=== PATIENT | female | born 1990 | race Caucasian/White ===

== ENCOUNTER 2016-10-20 17:31 | Emergency (ER) | payer MEDICAID ==
[~2016-10-20] VITALS: Ht 170.2 cm; Wt 54.4 kg
[~2016-10-20 17:31] MED LIST: ALPRAZOLAM1 MG PO; FLEXERIL10 MG PO; NOMEDS XX; PREDNISONE 10MG10 MG PO; SEPTRA DS 800 M1 TAB PO
--- OUTSIDE RECORDS SUMMARY | 2016-10-20 17:37 | External Medical Summary Rpt ---
Demographics Preferred Language Turkish Marital Status Unknown Yazidi Affiliation Unknown Race Unknown Ethnic Group Unknown Author Author , Organization [employer] Address Unknown Phone Unavailable Purpose Continuity of Care Document - through 2016 Immunization No patient found.
--- OUTSIDE RECORDS SUMMARY | 2016-10-20 17:37 | External Medical Summary Rpt ---
Demographics Preferred Language Welsh Marital Status Unknown Yarsani Affiliation Unknown Race Unknown Ethnic Group Unknown Author Author , Organization [employer] Address Unknown Phone Unavailable Purpose Continuity of Care Document - through 2016 Immunization No patient found.
--- OUTSIDE RECORDS SUMMARY | 2016-10-20 17:37 | External Medical Summary Rpt ---
Author Author GIBSON Leann, GIBSON [employer] Organization [employer] Address Unknown Phone Unavailable Payers Section Payer Plan Name Group ID Member ID Coverage Coverage Start End Date Date ANTHEM 79805^ANT [id number] No No HEM PPO 3 [phone] informati informati on in on in source source data data Results 52962 OB Comp Det Observa Value Referen Units Interpr Notes Date tion ce etation Range Obstetr No No No No September 06 ic informa informa informa informa 2011 Ultraso tion in tion in tion in tion in und source source source source ReportD data data data data etailed SurveyR eferral from:CHANTAL SANTOS CNM [facility] [address] [address] 0 [facility] RUSS Higginbotham [address] [place] [address] PhonePh one: FaxFax: ------ ------- ------- ------- ------- ------- ------- ------- ------- ------- -PATIEN T INFORMA TION:Na me: ALTAGRACIA MAGAÑA MR#: [id number]: 21 y/o Exam Date: 09/07/19 12DOB: [birth year] Visit #: 1LMP: 011 Locatio n: [facility] hcare-- Mirian d# Fetuses : 1INDICA TION: Exclude anomali es; tobacco e use-cur rent; hx:elec tive abortio n------ ------- ------- ------- ------- ------- ------- ------- ------- ------- -PHYSIC AL EXAM:Azael ight: 5' 8"Pre-P regnanc y Weight: 110 lbs.Pre -Pregna ncy BMI: 16.7 (Underw eight)C urrent Weight: 130 lbs.MED ICAL HISTORY :Drug Allergi es: NoOther /Commen ts: Medicat ion: Prenata l vitamin s------ ------- ------- ------- ------- ------- ------- ------- ------- ------- -DATING :Assign ed GAGA by LMP GA by US (LMP) EDD21 1/7 wks 20 3/7 wks 21 1/7 wks 01/17/12 BIOMETR Y:BPD: 46.9 mm 20 1/7 wks HC: 184.7 mm 20 6/7 wks(22% ) (28%)Fe mur: 34.6 mm 20 6/7 wks AC: 152.6 mm 20 3/7 wks(39% ) (16%)Ce ph Index:6 8 % (75%-85 %) HC/AC: 1.21 (0.99-1 .23)EFW : 391 gms 0 lbs 14 oz (%)Lat Ventric les: L-5.1 mm Cerebel lum: 21.3 mm (38%)Ci sterna Magna: 5.1 mm Nuchal Fold: 4.1 mmNasal Bone: Seen Heart Rate: 146 bpmFL/A C: 0.22 HL/BPD: 0.7FL/B PD: 0.74 Humerus : 32.9 mm 211/7 (47%)ME ESENTAT ION/COR D/PLACE NTA/FLU ID/CERV IX:Pres entatio n: Cephali cUmbili sy Cord: 3 Vessel Cord. Normal inserti on into the placent a.Place nta: Anterio r. There Is No Evidenc e Of Placent a Previa. Grade 1Amniot ic Fluid: Maximum Vertica l Pocket = 4.7 cm. Subject lissa AFVolum e: Normal. Cervix: NormalF ETAL ANATOMI SY SURVEY: Normal- -----Ca lvarium Lateral Ventric lesCere bellum Choroid PlexusC isterna Magna Midline FalxCav um Septum Pelluci dum NeckPro file OrbitsF bertram NoseLip s Cervica l SpineTh oracic Spine Lumbar SpineSa vlad Four Chamber ViewLVO T RVOTAor tic Arch Cardiac AxisCar diac Positio n Heart MotionD uctal Arch IVCSVC Cardiac RhythmD iaphrag m Chest WallVen tral Wall Left KidneyR ight Kidney Bladder Bowel Genital iaLeft Humerus Right Humerus Left Forearm Right Forearm Left Hand Right HandLef t Femur Right FemurLe ft Lower Leg Right Lower LegLeft Foot Right FootUmb ilical CordSub optimal ------- ---Stom ach Left Fingers Right Fingers Left ToesRig ht ToesAbn ormal-- ------N one identif iedGYN FINDING S:Ovari es: Left: NormalR ight: NormalE FW Summary TableEx am Date Fetus # EFW Percent ile---- ----- ------- ---- ------- ---09/06 1 391AMNI OTIC FLUID VOLUME: NORMAL Subject lissa AF Volume: Normal. Maximum Vertica lPocket : 4.7 cmCERVI X: Visuali zedCerv ical Evaluat ion: No----- ------- ------- ------- ------- ------- ------- ------- ------- ------- --COMME NTS:Vis ualizat ion of anatomy is limited by subopti mal fetalpo sition. The biometr ic measure ments are consist ent with menstru aldates .The amnioti c fluid volume is within normal limits. The fetalst omach is not well visuali zed and did not fill during the exam.Th ere are no other gross abnorma lities identif ied.Rec ommend a repeat ultraso und in 4 weeks to re-asse ss anatomy and growth. Thank you for this referra l. Please contact me if you haveque stions. Electro nically signed by SOLEDAD Joshi M.D. on 09/08/19 12 at8:39 am----- ------- ------- ------- ------- -BRANDIN Joshi M.D.--- ------- ------- ------- ------- ------- ----Son ligia r: Abigail Gold BSN, RNC, RDMS
--- OUTSIDE RECORDS SUMMARY | 2016-10-20 17:37 | External Medical Summary Rpt ---
Author Author , Organization [employer] Address Unknown Phone Unavailable Care Team Providers Care Wilderness Guide Name Role Phone [facility] Unavailable Unavailable SERVICE, [facility] Unavailable Unavailable TRANSPORTATION SER, [facility] Un[facility] Unavailable INC, [facility] Jean-Pierre Tinoco MD, Unavailable Unavailable Jean-Pierre [facility], Unavailable Unavailable PLLC, [facility], [facility] MICHAEL RAMIREZ, MICHAEL Unavailable Unavailable JR RAMIREZ WALKER FOR, WALKER Unavailable Unavailable FOR Purpose Continuity of Care Document - 09-07-2011 through 2016 Problems Code Diagnosis DOS Provider Status R69 ILLNESS 06-04-2016 [facility]ATED UNSPECIFIED TRANSPORTAT ION SER M5431 SCIATICA 04-29-2015 [facility], [facility] Z3401 ENCOUNTER 04-29-2015 [facility] NORMAL INC FIRST PREG 1 TRIMESTER M545 LOW BACK 04-27-2015 [facility] PAIN AMBULANCE SERVICE [id number] OTHER SPEC 04-27-2015 [facility], [facility] COND 1ST TRIMESTER Z3A01 LESS THAN 8 04-27-2015 [facility] GESTATION INC OF Z720 TOBACCO USE 04-27-2015 [facility] 599.0 599.0 URIN 12-31-2012 [facility] NOS 616.10 616.10 12-31-2012 [place] [facility] Allergies, Adverse Reactions, Alerts Type Drug Allergy Adverse Reaction to Substance Substance Reaction Severity No Known Allergies - Unknown Mild Nka Medications Na ND Rx Da Fi Fi Am Da Di Ph RX Ph St me C No te ll ll ou ys ag ar # ys at rm s nt no ma ic us Or Da si cy ia de te s n re d Le 51 09 0 No vo 07 -1 fl 90 4- Lo ox 03 20 ng ac 52 13 er in 0 Ac 50 ti 0M ve G Ta bl et FL 00 09 0 No UC 17 -1 ON 25 4- Lo AZ 41 20 ng OL 14 13 er E 6 10 Ac 0 ti MG ve TA BL ET AZ 68 09 0 No IT 08 -1 HR 40 4- Lo OM 27 20 ng YC 80 13 er IN 1 Ac 25 ti 0 ve MG TA BL ET Vital Signs 12-31-2012 20:37 Name Value Interpretat Reference Comment ion Range Body 98.5 [degF] Temperature BP 77 mm[Hg] Diastolic BP Systolic 126 mm[Hg] Heart 93 /min Rate/Pulse O2% 98 % Respiratory 18 /min Rate 12-31-2012 20:19 Name Value Interpretat Reference Comment ion Range BP 72 mm[Hg] Diastolic BP Systolic 127 mm[Hg] Heart 91 /min Rate/Pulse O2% 94 % Respiratory 18 /min Rate Results Labs Lab Lab Date Result Refere Interp Status Commen Order Detail nces retati t Range on URINALYSIS/COMPLETE (12-31-2012 20:07) URINE 12-31- YELLOW YELLOW complet COLOR 013 ed 20:07 URINE 12-31- SL CLEAR complet APPEARA 013 CLOUDY ed NCE 20:07 URINE 12-31-2 NEGATIV NEG complet GLUCOSE 013 E ed - 20:07 DIPSTIC K URINE 12-31-2 NEGATIV NEG complet BILIRUB 013 E ed IN - 20:07 DIPSTIC K URINE 12-31-2 NEGATIV NEG complet KETONE 013 E mg/dL ed 20:07 URINE 12-31- 1.020 1.005-1 complet SPECIFI 013 UNK .030 ed C 20:07 GRAVITY URINE 12-31- TRACE-L NEG complet BLOOD 013 YSED ed 20:07 URINE 12-31-2 6.0 UNK 5.0-8.5 complet PH 013 ed 20:07 URINE 12-31-2 1+ NEG complet PROTEIN 013 mg/dL ed - 20:07 DIPSTIC K URINE 12-31-2 0.2 NEG complet UROBILI 013 E.U./dL ed NOGEN - 20:07 DIPSTIC K URINE 12-31-2 POSITIV NEG complet NITRATE 013 E ed - 20:07 DIPSTIC K URINE 12-31-2 1+ NEG complet LEUK 013 ed ESTERAS 20:07 E URINE 12-31-2 FEW 0 complet RBC 013 rbc/hpf ed 20:07 URINE 09-14-2 TNTC O complet WBC 013 wbc/hpf ed 20:07 URINE 4+ O complet BACTERI 013 ed A 20:07 Procedures Procedure DOS Code Location Performer Comment NONEMERG A0120 FED[facility]ATED FEDERATED TRNSPRT: 7 [facility] TRANSPORT TRANSPORT MTN ATION SER ATION SER AREA/OTH SYS C-REACTIV 16108 [facility] PROTEIN [facility] INC INC BASIC 70168 [facility] METABOLIC 6 [facility] PANEL INC INC CALCIUM TOTAL GONADOTRO 58383 [facility] PIN 6 [facility] CHORIONIC INC INC QUANTITAT GARRET GONADOTRO 63591 [facility] PIN 6 [facility] CHORIONIC INC INC QUALITATI VE BLOOD 70668 [facility] COUNT 6 [facility] COMPLETE INC INC AUTO&[place] [address] [facility] INFUSION 6 [facility] THERAPY/P INC INC ROPHYLAXI S /DX 1ST TO 1 HR THERAPEUT 66543 [facility] IC 6 [facility] INJECTION INC INC IV PUSH EACH NEW DRUG Encounters Encounter Start End Date Code Location Performer Type Date EMERGENCY 99440 MICAELA SALGADO 6 6 [facility] FOR [facility] T VISIT [facility] - 6 6 [facility] OUTPATIEN INC T EMERGENCY 15957 [facility] 6 6 [facility] DEPARTMEN INC T VISIT LOW/MODER SEVERITY EMERGENCY 08768 [facility] 6 6 [facility] Gonzalez 6 6 [facility] OUTPATIEN INC T EMERGENCY 12126 MICAELA RODRIGUEZ JR 6 6 PHYSICIAN TWAN GARCIA T VISIT HIGH/URGE NT SEVERITY Emergency CANDELARIO Tinoco MD (ER) 3 20:11 3 20:38 [facility]
--- OUTSIDE RECORDS SUMMARY | 2016-10-20 17:37 | External Medical Summary Rpt ---
Author Author , Organization [employer] Address Unknown Phone Unavailable Care Team Providers Care Field Installation Technician Name Role Phone [facility] Unavailable Unavailable SERVICE, [facility] Unavailable Unavailable TRANSPORTATION SER, [facility] Unavailable Unavailable INC, [facility] Jean-Pierre Tinoco MD, Unavailable Unavailable Jean-Pierre [facility], Unavailable Unavailable PLLC, [facility], [facility] MICHAEL RAMIREZ, MICHAEL Unavailable Unavailable JR RAMIREZ WALKER FOR, WALKER Unavailable Unavailable FOR Purpose Continuity of Care Document - 09-07-2011 through 2016 Problems Code Diagnosis DOS Provider Status R69 ILLNESS 06-04-2016 FEDERATED UNSPECIFIED TRANSPORTAT ION SER M5431 SCIATICA 04-29-2015 [facility], [facility] Z3401 ENCOUNTER 04-29-2015 [facility] NORMAL INC FIRST PREG 1 TRIMESTER M545 LOW BACK 04-27-2015 [facility] PAIN AMBULANCE SERVICE [id number] OTHER SPEC 04-27-2015 [facility], [facility] COND 1ST TRIMESTER Z3A01 LESS THAN 8 04-27-2015 [facility] GESTATION INC OF Z720 TOBACCO USE 04-27-2015 [facility] INC 599.0 599.0 URIN 12-31-2012 [facility] NOS 616.10 616.10 12-31-2012 [place] VAGINITIS [facility] Allergies, Adverse Reactions, Alerts Type Drug [...] ATION SER ATION SER AREA/OTH SYS C-REACTIV 76177 [facility] E PROTEIN 6 [facility] INC INC BASIC 78716 [facility] METABOLIC 6 [facility] PANEL INC INC CALCIUM TOTAL GONADOTRO 11370 [facility] PIN 6 [facility] CHORIONIC INC INC QUANTITAT GARRET GONADOTRO 26357 [facility] PIN 6 [facility] CHORIONIC INC INC QUALITATI VE BLOOD 42035 [facility] COUNT 6 [facility] COMPLETE INC INC AUTO&[place] [address] [facility] INFUSION 6 [facility] THERAPY/P INC INC ROPHYLAXI S /DX 1ST TO 1 HR THERAPEUT 05122 [facility] IC 6 [facility] INJECTION INC INC IV PUSH EACH NEW DRUG Encounters Encounter Start End Date Code Location Performer Type Date EMERGENCY 07245 MICAELA SALGADO 6 6 [facility] T VISIT [facility] - 6 6 [facility] OUTPATIEN INC T EMERGENCY 67821 [facility] 6 6 [facility] DEPARTMEN INC T VISIT LOW/MODER SEVERITY EMERGENCY 36460 [facility] 6 6 [facility] Gonzalez 6 6 [facility] OUTPATIEN INC T EMERGENCY 22681 MICAELA RODRIGUEZ JR 6 6 PHYSICIAN TWAN GARCIA T VISIT HIGH/URGE NT SEVERITY Emergency CANDELARIO Tinoco MD (ER) 3 20:11 3 20:38 [facility]
--- OUTSIDE RECORDS SUMMARY | 2016-10-20 17:37 | External Medical Summary Rpt ---
Author Author , Organization [employer] Address Unknown Phone Unavailable Care Team Providers Care Business Integration Manager Name Role Phone [facility] Unavailable Unavailable SERVICE, [facility] Unavailable Unavailable TRANSPORTATION SER, [facility] Unavailable Unavailable INC, [facility], Unavailable Unavailable PLLC, [facility], [facility] MICHAEL JR JAM, MICHAEL Unavailable Unavailable JR JAMES WALKER FOR, WALKER Unavailable Unavailable FOR Purpose Continuity of Care Document - 04-27-2015 through 2016 Problems Code Diagnosis DOS Provider Status R69 ILLNESS 06-04-2016 FEDERATED UNSPECIFIED TRANSPORTAT ION SER M5431 SCIATICA 04-29-2015 [facility] RIGHT [facility], [facility] Z3401 ENCOUNTER 04-29-2015 [facility]PR[facility]N [facility] NORMAL INC FIRST PREG 1 TRIMESTER M545 LOW BACK 04-27-2015 [facility] [id number] OTHER SPEC 04-27-2015 [facility], RELATED [facility] COND 1ST TRIMESTER Z3A01 LESS THAN 8 04-27-2015 [facility] GESTATION INC OF Z720 TOBACCO USE 04-27-2015 [facility] INC Procedures Procedure DOS Code Location Performer Comment NONEMERG A0120 FEDERATED FEDERATED TRNSPRT: 7 MINI-BUS TRANSPORT TRANSPORT MTN ATION SER ATION SER AREA/OTH SYS GONADOTRO 17615 [facility] PIN 6 [facility] INC INC QUANTITAT GARRET BASIC 86417 [facility] METABOLIC 6 [facility] PANEL INC INC CALCIUM TOTAL C-REACTIV 13518 [facility] E PROTEIN 6 [facility] INC INC GONADOTRO 79919 [facility] PIN 6 [facility] CHORIONIC INC INC QUALITATI VE BLOOD 29643 [facility] COUNT 6 [facility] COMPLETE INC INC AUTO&[place] [address] [facility] INFUSION 6 [facility] THERAPY/P INC INC ROPHYLAXI S /DX 1ST TO 1 HR THERAPEUT 41507 [facility] IC 6 [facility] INJECTION INC INC IV PUSH EACH NEW DRUG Encounters Encounter Start End Date Code Location Performer Type Date EMERGENCY 88016 MICAELA SALGADO 6 6 PHYSICIAN TWAN FRAIRE T VISIT [facility] SEVERITY HOSPITAL OL[facility] - 6 6 [facility] OUTPATIEN INC T EMERGENCY 11872 OL[facility] 6 6 [facility] INC T VISIT LOW/MODER SEVERITY HOSPITAL OLIVIER - 6 6 [facility] OUTPATIEN INC T EMERGENCY 16454 [facility] 6 6 [facility] T VISIT MODERATE SEVERITY EMERGENCY 97707 MICAELA RODRIGUEZ JR 6 6 PHYSICIAN TWAN GARCIA T VISIT HIGH/URGE NT SEVERITY
--- OUTSIDE RECORDS SUMMARY | 2016-10-20 17:37 | External Medical Summary Rpt ---
Author Author GIBSON Leann, [email or web address] Organization [employer] Address Unknown Phone Unavailable Payers Section Payer Plan Name Group ID Member ID Coverage Coverage Start End Date Date ANTHEM 55794^ANT [id number] No No HEM PPO 3 [phone] informati informati on in on in source source data data Results 26799 OB Comp Det Observa Value Referen Units Interpr Notes Date tion ce etation Range Obstetr No No No No September 06 ic informa informa informa informa 2011 Ultraso tion in tion in tion in tion in und source source source source ReportD data data data data etailed SurveyR eferral from:CHANTAL SANTOS CNM [facility] H [address] [facility] RUSS Higginbotham [address] [place] [address] PhonePh one: FaxFax: ------ ------- ------- ------- ------- ------- ------- ------- ------- ------- -PATIEN T INFORMA TION:Na me: ALTAGRACIA MAGAÑA MR#: [id number]: 21 y/o Exam Date: 09/07/19 12DOB: [birth year] Visit #: 1LMP: 011 Locatio n: [facility] hcare-- Mirian d# Fetuses : 1INDICA TION: [...] PD: 0.74 Humerus : 32.9 mm 211/7 (47%)NM ESENTAT ION/COR D/PLACE NTA/FLU ID/CERV IX:Pres entatio [...]
--- OUTSIDE RECORDS SUMMARY | 2016-10-20 17:37 | External Medical Summary Rpt ---
Author Author , Organization [employer] Address Unknown Phone Unavailable Care Team Providers Care Incident Handler Name Role Phone [facility] Unavailable Unavailable SERVICE, [facility] Unavailable Unavailable TRANSPORTATION SER, [facility] Unavailable Unavailable INC, OLIVIER [facility], Unavailable Unavailable PLLC, [facility], [facility] MICHAEL JR JAM, MICHAEL Unavailable Unavailable JR JAMES WALKER FOR, WALKER Unavailable Unavailable FOR Purpose Continuity of Care Document - 04-27-2015 through 2016 Problems Code Diagnosis DOS Provider Status R69 ILLNESS 06-04-2016 FEDERATED UNSPECIFIED TRANSPORTAT ION SER M5431 SCIATICA 04-29-2015 [facility] RIGHT SIDE PHYS[facility]ANS, [facility] Z3401 ENCOUNTER 04-29-[address] [facility] NORMAL INC FIRST PREG 1 TRIMESTER M545 LOW BACK 04-27-2015 [facility] [id number] OTHER SPEC 04-27-2015 [facility], RELATED [facility] COND 1ST TRIMESTER Z3A01 LESS THAN 8 04-27-2015 [facility] GESTATION INC OF Z720 TOBACCO USE 04-27-2015 [facility] Procedures Procedure DOS Code Location Performer Comment NONEMERG A0120 FEDERATED FEDERATED TRNSPRT: 7 MINI-BUS TRANSPORT TRANSPORT MTN ATION SER ATION SER AREA/OTH SYS GONADOTRO 74293 [facility] PIN 6 [facility] CHORIONIC INC INC QUANTITAT GARRET BASIC 11444 [facility] METABOLIC 6 [facility] PANEL INC INC CALCIUM TOTAL C-REACTIV 17249 [facility] E PROTEIN 6 [facility] INC INC GONADOTRO 21401 [facility] PIN 6 [facility] CHORIONIC INC INC QUALITATI VE BLOOD 80261 [facility] COUNT 6 [facility] COMPLETE INC INC AUTO&[place] [address] [facility] INFUSION [address] [facility] THERAPY/P INC INC ROPHYLAXI S /DX 1ST TO 1 HR THERAPEUT 09974 [facility] IC [address] [facility] INJECTION INC INC IV PUSH EACH NEW DRUG Encounters Encounter Start End Date Code Location Performer Type Date EMERGENCY 52810 MICAELA SALGADO 6 6 PHYSICIAN TWAN FRAIRE T VISIT [facility] - 6 6 [facility] T EMERGENCY 52056 OL[facility] 6 6 [facility] INC T VISIT LOW/MODER SEVERITY HOSPITAL [facility] - 6 6 [facility] EM[facility]ENCY 56744 [facility] [address] [facility] T VISIT MODERATE SEVERITY EMERGENCY 28229 MICAELA RODRIGUEZ JR 6 6 PHYSICIAN TWAN GARCIA T VISIT HIGH/URGE NT SEVERITY
--- NOTE | 2016-10-20 18:06 | Emergency Room Report ---
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 N Clinical Suspician of Infection? N Mental Status: 1 - Regular (Normal Baseline) Sepsis Risk:Low Sepsis Risk Have you (or family members/close friends) recently traveled outside the [place]? N If Yes, where/when: Have you had exposure to infectious disease within the past month? N TB? Other? Specify: Comment The patient is sent from the urgent treatment center for drainage of an abscess on her LEFT forearm. Patient states this is the third day of the abscess. She denies having previous abscesses. She denies having fever. She says it only hurts when she touches it. Tetanus immunization is up-to-date. ALLERGIES Coded Allergies: No Known Allergies (04/27/15) History Medical History General CAD? No Angina: No CO: No Hypertension? No Hyperlipidemia? No CHF? No DVT? No PE? No COPD? No Asthma? No Anemia? No GERD? No Gastric ulcers? No GI Bleed? No Hernia? No Thyroid Problems? No Hypothyroidism? No CVA? No Seizures? No Diabetes? No Renal Insuffiency? No End Stage Renal Disease? No UTI? No Stones? No BPH? No GB Disease: No Nephritic Syndrome? No Asplenia? No Hepatitis? Yes Sickle Cell Disease? No Arthritis? No Migraines? No Cataracts? No Glaucoma? No MRSA? No HIV? No TB? No Anxiety? No Depression? No Cancer? No More? 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 Cardiovascular normal peripheral pulses Extremities 3 cm diameter fluctuant abscess on the flexor aspect of her LEFT forearm. She has surrounding cellulitis extending approximately 8 cm radius around the abscess. No lymphangitis. No spontaneous drainage. Normal neurovascular status distally. Neurologic alert, no motor/sensory deficits Medical Decision Making LABS/Meds/Orders Pt receiving controlled substance in ED? Yes Mitchel was queried for this patient? Yes Reference #: [id number] Comment 0 rxs. Results/Orders Current Medication Orders Sig/Kristen Start time Last Medication Dose Route Stop Time Status Admin Clindamycin HCl 0 .STK-MED ONE 10/20 183 DC PO Clindamycin HCl 300 MG ONCE ONE 10/20 1830 DC 10/20 PO 10/20 1830 183 Lidocaine/Epinephrine 10 ML ONCE ONE 10/20 1815 DC 10/20 SC 10/21 1815 181 Lidocaine/Epinephrine 0 .STK-MED ONE 10/20 1809 DC .ROUTE Orders Procedure Date/time Status CULTURE, WOUND 10/20 1832 Active Progress - She has what in my opinion are obvious track scott from IV drug abuse on both arms, but denies this when I inquire about injection drug use. She states she was camping and got bug bites. This was a difficult patient encounter. She initially consented to the procedure. When I was getting ready to inject the local anesthetic, she said "I can't do it", and then refused the procedure. She began yelling at me for telling her the shot was going to hurt. I explained that I was just being honest, rather than telling her it would not hurt, which would be a lie. I explained in detail the aspects of the procedure. I explained that she had the right to refuse the procedure, but that I&D was the standard of care for an abscess, and not having this procedure could lead to complications, such as worsening/severe infection, loss of limb, sepsis. She then told me to proceed, but as I started to do so, she again said she could not do it. Several more times, she told me to procede, but then would refuse as I was beginning to procede. Several times she yelled at me and criticized me for telling her the details of the procedure and making things worse. When I was injecting (slowly, to reduce the pain from the injection), she began insulting me and screaming at me for "leaving the needle in too long". She again refused to proceed after the injection of lidocaine was complete, but then once again told me to complete the procedure. I did tell the patient that she was going to have to be cooperative and still, and stop yelling and insulting me, otherwise I would not be able to do the procedure. During the procedure, she began hyperventilating and kicking her legs, stating she was having an anxiety attack and could not breathe. I was able to complete the procedure. Procedures Incision and Drainage Progress Incision/Drainage Performed by: PRATEEK SINGH Consent: Verbal consent obtained. Risks and benefits: risks, benefits and alternatives were discussed Consent given by: patient Patient identity confirmed: verbally with patient Type: abscess Location: LEFT forearm Anesthesia: local infiltration Local anesthetic: lidocaine 1% with epinephrine Patient sedated: no Scalpel size: 11 Incision type: single straight Complexity: simple Drainage: purulent Drainage amount: Large amount Wound treatment: probed for loculationsl. wound left open Packin/4 inch Culture: Yes Patient tolerance: Patient tolerated the procedure well with no immediate complications Departure Departure Disposition DC Home or Self Care(routine) Clinical Impression Primary Impression: Cutaneous abscess Qualifiers: Site of cutaneous abscess: extremity Site of cutaneous abscess of extremity: upper extremity Laterality: left Qualified Code: L02.414 - Cutaneous abscess of left upper limb Condition STABLE Patient Instructions DI for Incision and Drainage of a Skin Abscess Additional Instructions Additional instructions for ABSCESS: Day one and two: Remove the bandage and shower the area, leaving the packing in place. Gently blot dry. Apply a bandage. Day three: Follow-up with primary care physician, clinic, or Urgent Treatment Center for packing removal and culture results. Return to the emergency department if increasing pain, swelling, redness, redstreaks or fever greater than 101 degrees. Prescriptions Current Visit Scripts Clindamycin Hcl (Clindamycin 300MG) 300 MG PO QID #40 CAP HYDROCODONE/ACETAMINOPHEN ([place] 5-325 Tablet) 1 TAB PO Q6HP PRN pain #6 TAB IBUPROFEN MICRONIZED (IBUPROFEN 600MG) 600 MG PO Q6HP PRN pain #20 TAB ED Critical Care Critical Care No at 1927
[2016-10-20] MEDS ORDERED: IBUPROFEN 600M600 MG PO (18:31)
[2016-10-20] MEDS ORDERED: CLINDAMYCIN HC300 MG PO (18:31)
[2016-10-20] MEDS ORDERED: NORCO 325 MG-51 TAB PO (18:31)
[2016-10-20 18:43] VITALS: BP 117/67
== END 2016-10-20 18:44 | disposition home or self-care (01) ==
LOC: UTC 17:31 → ER 17:34 → UTC 17:34 → ER 18:44
PROC: 0H9EXZZ Drainage of Left Lower Arm Skin, External Approach (ICD-10-PCS; principal; 2016-10-20)
DX: L02.414 Cutaneous abscess of left upper limb (principal)

== ENCOUNTER 2017-03-22 05:44 | Emergency (ER) | payer MEDICAID ==
[~2017-03-22] VITALS: Ht 170.2 cm; Wt 45.4 kg
[~2017-03-22 05:44] MED LIST changes: +CLINDAMYCIN HC300 MG PO; +IBUPROFEN 600M600 MG PO; +NORCO 325 MG-51 TAB PO
--- OUTSIDE RECORDS SUMMARY | 2017-03-22 06:06 | External Medical Summary Rpt | CCD ---
Author Author , GIBSON Organization [employer] Address Unknown Phone [email or web address] Care Team Providers Care Airport Security Screener Name Role Phone Jean-Pierre Tinoco MD, Unavailable Unavailable Jean-Pierre Tinoco MD Purpose Continuity of Care Document - 09-07-2011 through 2016 Problems Code Diagnosis DOS Provider Status 599.0 599.0 URIN 12-31-2012 [facility] INFECTION Hospital NOS 616.10 616.10 12-31-2012 [place] VAGINITIS [facility] L02.91 CUTANEOUS ABSCESS, UNSPECIFIED M54.30 SCIATICA, UNSPECIFIED SIDE Z34.90 ENCNTR FOR SUPRVSN OF NORMAL , UNSP, UNSP TRIMESTER Allergies, Adverse Reactions, Alerts Type Drug Allergy [...] t Range on URINALYSIS/COMPLETE (12-31-2012 20:07) URINE 09-14-2 YELLOW YELLOW complet COLOR 013 ed 20:07 URINE -14-2 SL CLEAR complet APPEARA 013 CLOUDY ed NCE 20:07 URINE -14-2 NEGATIV NEG complet GLUCOSE 013 E ed - 20:07 DIPSTIC K URINE 09-14-2 NEGATIV NEG complet BILIRUB 013 E ed IN - 20:07 DIPSTIC K URINE 09-14-2 NEGATIV NEG complet KETONE 013 E mg/dL ed 20:07 URINE 09-14-2 1.020 1.005-1 complet SPECIFI 013 UNK .030 ed C 20:07 GRAVITY URINE -14-2 TRACE-L NEG complet BLOOD 013 YSED ed 20:07 URINE -14-2 6.0 UNK 5.0-8.5 complet PH 013 ed 20:07 URINE 09-14-2 1+ NEG complet PROTEIN 013 mg/dL ed - 20:07 DIPSTIC K URINE 09-14-2 0.2 NEG complet UROBILI 013 E.U./dL ed NOGEN - 20:07 DIPSTIC K URINE 09-14-2 POSITIV NEG complet NITRATE 013 E ed - 20:07 DIPSTIC K URINE 09-14-2 1+ NEG complet LEUK 013 ed ESTERAS 20:07 E URINE -14-2 FEW 0 complet RBC 013 rbc/hpf ed 20:07 URINE -14-2 TNTC O complet WBC 013 wbc/hpf ed 20:07 URINE -14-2 4+ O complet BACTERI 013 ed A 20:07 Encounters Encounter Start End Date Code Location Performer Type Date Emergency CANDELARIO Tinoco MD (ER) 3 20:11 3 20:38 [facility]
--- OUTSIDE RECORDS SUMMARY | 2017-03-22 06:06 | External Medical Summary Rpt | CCD ---
Author Author , GIBSON ARREAGA Address Unknown Phone [email or web address] Care Team Providers Care Glass Installer Name Role Phone [facility] Unavailable Unavailable SERVICE, [facility] Unavailable Unavailable TRANSPORTATION SER, [facility] Unavailable Unavailable INC, [facility]available [facility], [facility] Purpose Continuity of Care Document - 04-27-2015 through 2016 Problems Code Diagnosis DOS Provider Status [id number] CUTANEOUS 10-20-2016 [facility]PP[facility] LIMB R69 ILLNESS 06-04-2016 [facility] UNSPECIFIED TRANSPORTAT ION SER M5431 SCIATICA 04-29-2015 [facility] Z3401 ENCOUNTER 04-29-2015 [facility] NORMAL [facility] FIRST PREG 1 TRIMESTER M545 LOW BACK 04-27-2015 [facility] PAIN AMBULANCE SERVICE [id number] OTHER SPEC 04-27-2015 [facility] COND 1ST TRIMESTER Z3A01 LESS THAN 8 04-27-2015 [facility] GESTATION [facility] OF Z720 TOBACCO USE 04-27-2015 [facility] Encounters Encounter Start End Date Code Location Performer Type Date [facility] - [facility] - [facility] T
--- OUTSIDE RECORDS SUMMARY | 2017-03-22 06:06 | External Medical Summary Rpt | CCD ---
Author Author , GIBSON ARREAGA Address Unknown Phone [email or web address] Care Team Providers Care Director Craft Center Name Role Phone [facility] Unavailable Unavailable SERVICE, [facility] Unavailable Unavailable TRANSPORTATION SER, [facility] Unavailable Unavailable INC, [facility], Unavailable Unavailable [facility], [facility] Purpose Continuity of Care Document - 04-27-2015 through 2016 Problems Code Diagnosis DOS Provider Status X03405 CUTANEOUS 10-20-2016 [facility] LIMB R69 ILLNESS 06-04-2016 [facility] UNSPECIFIED TRANSPORTAT ION SER M5431 SCIATICA 04-29-2015 [facility] Z3401 ENCOUNTER 04-29-2015 [facility] NORMAL [facility] FIRST PREG 1 TRIMESTER M545 LOW BACK 04-27-2015 [facility] PAIN AMBULANCE SERVICE [id number] OTHER SPEC 04-27-2015 [facility] COND 1ST TRIMESTER Z3A01 LESS THAN 8 04-27-2015 [facility] GE[facility]ATION [facility] OF Z720 TOBACCO USE 04-27-2015 [facility] Encounters Encounter Start End Date Code Location Performer Type Date [facility] - [facility] - [facility] - [facility] T
--- OUTSIDE RECORDS SUMMARY | 2017-03-22 06:06 | External Medical Summary Rpt | CCD ---
Author Author , GIBSON Organization GIBSON Address Unknown Phone [email or web address] Care Team Providers Care Naval Inspector Name Role Phone Jean-Pierre Tinoco MD, Unavailable Unavailable Jean-Pierre Tinoco MD Purpose Continuity of Care Document - 09-07-2011 through 2016 Problems Code Diagnosis DOS Provider Status 599.0 599.0 URIN 12-31-2012 [facility] INFECTION Hospital NOS 616.10 616.10 12-31-2012 [place] VAGINITIS [facility] Hospital L02.91 CUTANEOUS ABSCESS, UNSPECIFIED M54.30 [...] Tinoco MD (ER) 3 20:11 3 20:38 [facility]
--- OUTSIDE RECORDS SUMMARY | 2017-03-22 06:07 | External Medical Summary Rpt | CCD ---
Demographics Preferred Language Lithuanian Marital Status Unknown Rastafari Affiliation Unknown Race Unknown Ethnic Group Unknown Author Author , GIBSON Organization GI[employer] Address Unknown Phone Immunization Unable to retrieve immunization data due to connection failure with Immunization Registry. Please try again later.
--- OUTSIDE RECORDS SUMMARY | 2017-03-22 06:07 | External Medical Summary Rpt ---
Author Author NIKOLAISABRINA [employer], [employer] [employer] Address Unknown Phone Unavailable Payers Section Payer Plan Name Group ID Member ID Coverage Coverage Start End Date Date ANTHEM 59500^ANT [id number] No No HEM PPO [id number] informati informati on in on in source source data data Results [id number] OB Comp Det Observa Value Referen Units Interpr Notes Date tion ce etation Range Obstetr No No No No September 06 ic informa informa informa informa 2011 Ultraso tion in tion in tion in tion in und source source source source ReportD data data data data etailed SurveyR eferral from:CHANTAL SANTOS , DIDIER [facility] [address] [address] [address] [place], [place] [address] [address] PhonePh one: FaxFax: ------ ------- ------- ------- ------- ------- ------- ------- ------- ------- -PATIEN T INFORMA TION:Na me: ALTAGRACIA MAGAÑA MR#: [id number]: 21 y/o Exam Date: 09/07/19 12DOB: [birth year] Visit #: 1LMP: [id number] Locatio n: [facility] hcare-- [place]# Fetuses : 1INDICA TION: Exclude anomali [...] PD: 0.74 Humerus : 32.9 mm 211/7 (47%)LA ESENTAT ION/COR D/PLACE NTA/FLU ID/CERV IX:Pres entatio [...]
--- OUTSIDE RECORDS SUMMARY | 2017-03-22 06:07 | External Medical Summary Rpt ---
Author Author NIKOLAISABRINA [employer], GI[facility]ON [employer] Address Unknown Phone Unavailable Payers Section Payer Plan Name Group ID Member ID Coverage Coverage Start End Date Date ANTHEM 72735^ANT [id number] No No HEM PPO [id number] informati informati on in on in source source data data Results 23065 OB Comp Det Observa Value Referen Units Interpr Notes Date tion ce etation Range Obstetr No No No No September 06 ic informa informa informa informa 2011 Ultraso tion in tion in tion in tion in und source source source source ReportD data data data data etailed SurveyR eferral from:CHANTAL SANTOS , DIDIER [facility] [address] [address] [address] [place], [place] [address] [address] PhonePh one: FaxFax: ------ ------- ------- ------- ------- ------- ------- ------- ------- ------- -PATIEN T INFORMA TION:Na me: ALTAGRACIA MAGAÑA MR#: [id number]: 21 y/o Exam Date: 09/07/19 12DOB: [birth year] Visit #: 1LMP: [id number] Locatio n: [facility] hcare-- [place]# Fetuses : 1INDICA TION: [...] PD: 0.74 Humerus : 32.9 mm 211/7 (47%)DC ESENTAT ION/COR D/PLACE NTA/FLU ID/CERV IX:Pres entatio [...]
--- OUTSIDE RECORDS SUMMARY | 2017-03-22 06:07 | External Medical Summary Rpt | CCD ---
Demographics Preferred Language Czech Marital Status Unknown Congregational Affiliation Unknown Race Unknown Ethnic Group Unknown Author Author , GIBSON Organization [employer] Address Unknown Phone Immunization Unable to retrieve immunization data due to connection failure with Immunization Registry. Please try again later.
[2017-03-22 06:18] LABS: ARTERIAL ABE -31.7 MMOL/L (-2.4-+2.3); ARTERIAL PO2 77.5 MMHG (80-100); ARTERIAL TCO2 7.1 MMOL/L (23-27)
--- NOTE | 2017-03-22 06:28 | Emergency Room Report ---
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 LABORED RESPS AND COLOR PALE. 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 N Clinical Suspician of Infection? Y Mental Status: 3 - Acutely Altered Sepsis Risk:Severe Sepsis Risk Have you (or family members/close friends) recently traveled outside the [place]? N If Yes, where/when: Have you had exposure to infectious disease within the past month? N TB? Other? Specify: Source RN notes reviewed, RN/MD, EMS Exam Limitations clinical condition Comment This is a 26-year-old female patient brought in by EMS for evaluation of severe shortness of breath. History is limited as patient is in severe respiratory distress, hypoxic. EMS advised that call was placed by boyfriend with whom the patient lives, advised that he will be arriving to the emergency room later on. Patient walked to the EMS. ALLERGIES Coded Allergies: No Known Allergies (04/27/15) Home Medications Active Scripts Clindamycin Hcl (Clindamycin 300MG) 300 MG PO QID #40 CAP Prov: 10/20/16 HYDROCODONE/ACETAMINOPHEN ([place] 5-325 Tablet) 1 TAB PO Q6HP PRN pain #6 TAB Prov: 10/20/16 IBUPROFEN MICRONIZED (IBUPROFEN 600MG) 600 MG PO Q6HP PRN pain #20 TAB Prov: 10/20/16 History Medical History General CAD? No Angina: No DC: No Hypertension? No Hyperlipidemia? No CHF? No DVT? No PE? No COPD? No Asthma? No Anemia? No GERD? No Gastric ulcers? No GI Bleed? No Hernia? No Thyroid Problems? No Hypothyroidism? No CVA? No Seizures? No Diabetes? No Renal Insuffiency? No End Stage Renal Disease? No UTI? No Stones? No BPH? No GB Disease: No Nephritic Syndrome? No Asplenia? No Hepatitis? Yes Sickle Cell Disease? No Arthritis? No Migraines? No Cataracts? No Glaucoma? No MRSA? No HIV? No TB? No Anxiety? No Depression? No Cancer? No More? 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 Hx LMP N/A Social History Smoking Hx Smoker: Current Every Day Smoker Tobacco: No Type Cigarettes Packs/day < 1 Pack Alcohol Alcohol: No Review of Systems All Other Systems Reviewed and Negative Respiratory shortness of breath Physical Exam Vital Signs Vital Signs Date Time Temp Pulse Resp B/P Pulse O2 O2 Flow FiO2 Ox Delivery Rate 03/22 1545 0 0 00 0 03/22 0815 97.2 73 24 03/22 0810 98.1 80 24 00/00 03/22 0650 97.2 73 00 97 03/22 0650 116 20 98 03/22 0545 98.1 101 42 132/54 96 10 General Appearance severe distress, diaphoretic, very anxious, tachypneic Respiratory Status Yes: respiratory distress, non tender chest. Lung Sounds bilateral: rhonchi, wheezing. Cardiovascular tachycardia, systolic murmur (right sernal border), exam is very difficult due to the patient's distress Peripheral Pulses Pulses normal Yes Gastrointestinal soft Neurologic agitated, unable to evaluate Mental status depressed affect, very anxious Skin pallor, mucous membranes dry, decreased skin turgor Medical Decision Making LABS/Meds/Orders Pt receiving controlled substance in ED? No Comment 07:21am - call initiated with [facility] Call picked up by Neisha in Transfer Center. Requested patient to be transferred and acce 07:35am-call picked up by Dr Carrasquillo, ICU attending, advised of the patient's patient findings, including all lab work. Dr Carrasquillo recommended adjusting the vent settings, by increasing the tidal volume, increasing the respiratory rate, increasing the PEEP, starting a HCO3 drip, adding vancomycin (already ordered here) + Zosyn. Also wants the vasopresseors switched from Levophed and Dopamine to Vasopressin and Levophed. I insisted the patient can NOT wait for an Intensive Care Unit bed to open up (as none are available at this time) and she is to be accepted to the emergency room instead, as soon as possible. 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 07:45am-I was advised that I will be calling back within 5 minutes with an acceptance into the ER. 07:50am- called back advising that they are agreeable with patient being transferred directly to ER. 07:45am-[facility] contacted, they will arrive at our facility ot pickle sorter patient for transfer. 08:00am-discussed with alexieneduar in the conference room, with nurses as witnesses (Casandra Ochoa and Esperanza). Boyfriend advised that she has a history of iv heroin abuse, and that she recently startied snorting the heroin because she ran out of "good veins". Boyfriend thinks that she needs to be sent to drug rehab. Also advised that patient is homeless, and that he took her to stay with him because she is a "good friend". Advised boyfriend of the grim prognosis, also plan to transfer the patient to by air. Was called back to the patient's room as she lost her pulse, code blue initiated. After just 2-3 minutes of CPR and one dose of iv Epi patient restored her pulse. It was now noticed that she was completely unresponsive with fixed, dilated pupils. Following this incident, the patient coded again at least 5-6 more times, briefly, and again, restored the pulse immediatley after one dose of Epi. Boyfriend stated that patient has been complaining with shortness of breath for the past 3 days, and he has allowed her to use his short-acting beta agonist inhaler (Albuterol) which provided her with temporary relief. She woke up gasping for air at 04:00am asking him to be taken to the emergency room. Bedisde ECHO shows severe hypokynesis, with the wall just barely moving, likely due to the drips / meds received. Added Norepi drip. Transfer on hold due to multiple recurrent episodes of patient losing her pulse (code blue). When restored, pulse is ONLY detected by portable ultrasound Doppler machine. Patient failed to respond to any/all the treatment delivered so far. The 2nd ABG shows worsening values. Most importantly patient appears septic (with a critical lactic acid level of 16) and in septic shock due to endocarditis, and showering of the lungs with septic emboli. The patient's workup reflect critical / terminal prognosis. Without the 3 drips the patient has no peripheral or central pulses, she has no spontaneous respirations, pupils are fixed, dilated, has no corneal reflexes. Patient declared as all efforts appear now futile. Transfer to cancelled (although [facility] here already). Will contact family and call in operator weapon locating radar. Results/Orders Laboratory Tests 03/22/17 1010: Lactic Acid Cancelled 03/22/17 0801: Misc Test Units BLOOD UNIT RELEASE 03/22/17 0710: VBG pH 6.50 L, VBG Total CO2 8.3 L, VBG O2 Sat (Calc) 19.6 L, VBG Base Excess -33.4 L, Mixed VBG pCO2 77.5 H, Mixed VBG pO2 36.1, Mixed VBG HCO3 5.9 L 03/22/17 0700: Antibody Screen NEGATIVE, Miscellaneous Test POSITIVE 03/22/17 0700: Myoglobin Cancelled, Antibody Screen NEGATIVE, Miscellaneous Test POSITIVE 03/22/17 0640: Stool Occult Blood NEGATIVE 03/22/17 0638: Antibody Screen Cancelled, Miscellaneous Test Cancelled 03/22/17 0610: Phosphorus 8.9 H, Magnesium 3.2 H 03/22/17 0610: Lactic Acid 16.7 H 03/22/17 0610: TSH 3.03, Free T4 Index 3.5 L, Thyroxine (T4) 3.8 L, T3 Uptake 37 03/22/17 0610: Creatine Kinase 42, CK-MB (CK-2) Rel Index 3.6, CK and CKMB Interp 1.5, Troponin I 0.61 H, B-Natriuretic Peptide 1120 H, Retic Count 2.8 03/22/17 0610: Amylase 23 L, Lipase 76, Peripheral Blood Smear Cancelled 03/22/17 0610: Sodium 137, Potassium 6.7 *H, Chloride 105, Carbon Dioxide 7 *L, BUN 19 H, Creatinine 1.1 H, Estimated Creat Clear 56, Estimated GFR (MDRD) 61, Glucose 258 H, Calcium 8.0 L, Total Bilirubin 0.6, AST 31.2, ALT 10.8 L, Alkaline Phosphatase 243 H, Total Protein 5.4 L, Albumin 1.5 L, Globulin 3.9 H, Albumin/Globulin Ratio 0.4 L, D-Dimer 3070 *H, WBC 43.4 *H, Corrected WBC (auto ) 43.0, RBC 2.54 L, Hgb 6.6 *L, Hct 24.6 L, MCV 96.5, RDW 19.4 H, Plt Count 58 L, MPV 12.1 H, Gran % 74.9, Gran # 32.5 H, Total Counted 100, Lymphocytes % 21.3, Monocytes % 2.4, Eosinophils % 0.2, Basophils % 1.2, Neutrophils 79 H, Band Neutrophils 6, Lymphocytes (Manual) 7 L, Lymphocytes # 9.3 H, Monocytes ( Manual) 5, Monocytes # 1.0, Eosinophils # 0.1, Basophils # 0.5 H, Myelocytes 3 H, Nucleated RBCs 1, Platelet Estimate MARKED DECREASE, Hypochromasia 2+, Anisocytosis 2+, Stomatocytes 1+, Rosio Cells 2+, PUBS MCHC 26.7 L, MCH 25.8 L 03/22/17 0605: ABG pH 6.64 *L, ABG pCO2 (Temp Corrct 52.3 H, ABG pO2 (Temp Correct 77.5 L, ABG HCO3 5.5 L, ABG Total CO2 7.1 L, ABG O2 Sat (Calculated) 70.3 *L, ABG Base Excess -31.7 L 03/22/17 0546: Opiates Screen Cancelled, Urine Methadone Screen Cancelled, Barbiturates Cancelled, Phencyclidine Screen Cancelled, Amphetamines Screen Cancelled, Benzodiazepines Screen Cancelled, Cocaine Screen Cancelled, Marijuana (THC) Screen Cancelled 03/22/17 0545: Urine Color Cancelled, Urine Appearance Cancelled, Urine pH Cancelled, Ur Specific [place] Cancelled Current Medication Orders Sig/Kristen Start time Last Medication Dose Route Stop Time Status Admin Azithromycin 500 MG ONCE ONE 03/23 1945 DCD 03/22 Sodium Chloride 250 ML IV 03/23 2044 0615 Epinephrine HCl 1 MG PRN PRN 03/23 1900 DCD 03/22 IV 03/23 2039 08 Epinephrine HCl 5 MG ONCE ONE 03/23 1900 DCD 03/22 Sodium Chloride 250 ML IV 03/23 1954 08 Naloxone HCl 2 MG PRN PRN 03/23 1900 DCD 03/22 IV 03/23 2039 0800 Norepinephrine 8 MG ONCE ONE 03/23 1900 DCD 03/22 Bitartrate IV 03/29 359 0800 Dextrose/Water 250 ML Sodium Bicarbonate 50 ML PRN PRN 03/23 1900 DCD 03/22 IV 03/23 2039 08 Sodium Chloride 1,000 ML .Q1H PRN 03/230 DCD 03/22 IV 03/23 Orders Procedure Date/time Status CODE BLUE ORDERS/PROC. APPROVE 03/23 1906 Active DIET-NOTHING BY MOUTH 03/22 B Active BLOOD BANK REQUEST FOR SYSTEMS SOFTWARE ENGINEER 03/22 0744 Complete RETICULOCYTE COUNT 03/22 07 Complete RT REQUEST ALBUTEROL NEB 03/22 0708 Active TRANSFUSION RX WORKUP 03/22 07 Complete URINARY CATHETER INSERT 03/22 0645 Active NG TUBE INSERT 03/22 0642 Active CROSSMATCH 03/22 0638 Complete TYPE FOR CROSSMATCH 03/22 0638 Complete STOOL OCCULT BLOOD 03/22 0637 Complete D-DIMER 03/22 0629 Complete PHOSPHORUS 03/22 0627 Complete MAGNESIUM 03/22 0627 Complete CULTURE, SPUTUM 03/22 0620 Complete FSBS REQUEST BY CARE AREA 03/22 0619 Active DIFFERENTIAL-WBC 03/22 0610 Complete ELECTROCARDIOGRAM REQUEST 03/22 0547 Active CULTURE, BLOOD 03/22 0547 Active CBC WITH AUTO DIFF 03/22 0547 Complete CARDIAC ENZYMES 03/22 0547 Complete CHEM 12 PROFILE 03/22 0547 Complete BRAIN NATRIURETIC PEPTIDE 03/22 0547 Complete ARTERIAL BLOOD GAS REQUEST 03/22 0546 Active THYROID PANEL 2 (WITH TSH) 03/22 0546 Complete SERUM , QUAL 03/22 0546 Complete LIPASE 03/22 0546 Complete LACTIC ACID 03/22 0546 Complete AMYLASE 03/22 0546 Complete IV SALINE LOCK 03/22 0545 Active 12 LEAD EKG-SCAR (INITIAL) 03/22 UNK Active 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 of ischemic chgs, no ectopy XRAY/CT/US XRAY/CT/US 1 XRAY chest XR interpretation by reviewed by me Xray Results abnormal Comment Multiple infiltrates XRAY/CT/US 2 XRAY chest XR interpretation by reviewed by me Xray Results abnormal Comment Multiple infiltrates, ET tube 1 cm above jackson XRAY/CT/US 3 XRAY chest XR interpretation by reviewed by me Xray Results abnormal Comment ET tube 1 cm above jackson, RIGHT IJ central line, good position, multiple infiltrates Procedures Central Line Central Line Placement Risks/benefits discussed with pt/guardian? No Anesthesia no CL Placement [place], Rt Internal jugular, Prepped and draped, Triple lumen, good venous return, confirmed with xray, sutured, Sterile Dressing Applied. Complications none Intubation Intubation Risks/benefits discussed with pt/guardian? No Intubation Method orotracheal Tube Size (cm) 7.0 Medications Other (none necessary) Breath Sounds after Intubation: equal Intubation Complications no complications Post Intubation Xray Yes (no PTX) Departure Departure Time of Disposition 0849 Disposition Clinical Impression Primary Impression: Septic endocarditis Secondary Impressions: Anemia Qualifiers: Anemia type: unspecified type Qualified Code: D64.9 - Anemia, unspecified Bronchopneumonia Leukocytosis Qualifiers: Leukocytosis type: unspecified Qualified Code: D72.829 - Elevated white blood cell count, unspecified Metabolic acidosis NSTEMI (non-ST elevated myocardial infarction) Respiratory failure Qualifiers: Chronicity: acute Respiratory failure complication: hypoxia Qualified Code: J96.01 - Acute respiratory failure with hypoxia Septic shock Thrombocytopenia Condition ED Critical Care Critical Care Yes Time spent 75-104 min Vital system(s) involved: Metabolic Failure, Respiratory Failure I was present at bedside for Coordinating pt's care, Interpreting EKGs/Strips , During my initial exam, Reviewing lab results, Reviewing old records, For re- examinations, Ventilator management, Examining radiographs If Critical Care minutes are documented, the time involved in the performance of seperately reportable procedures was not counted toward critical care time documented. I directly delivered medical care to this critically ill and/or injured patient. Timely evaluation and treatment was necessary to address the significant organ system(s) dysfunction present in this patient. at 0834 Risks/benefits discussed with pt/guardian? No Intubation Method orotracheal Tube Size (cm) 7.0 Breath Sounds after Intubation: equal Intubation Complications no complications Post Intubation Xray Yes Departure Departure Time of Disposition 0849 Disposition Clinical Impression Primary Impression: Metabolic acidosis Secondary Impressions: Anemia Qualifiers: Anemia type: unspecified type Qualified Code: D64.9 - Anemia, unspecified Leukocytosis Qualifiers: Leukocytosis type: unspecified Qualified Code: D72.829 - Elevated white blood cell count, unspecified NSTEMI (non-ST elevated myocardial infarction) Respiratory failure Qualifiers: Chronicity: acute Respiratory failure complication: hypoxia Qualified Code: J96.01 - Acute respiratory failure with hypoxia Thrombocytopenia Condition STABLE ED Critical Care Critical Care Yes Time spent 30-74 min Vital system(s) involved: Metabolic Failure, Respiratory Failure I was present at bedside for Coordinating pt's care, Interpreting EKGs/Strips , During my initial exam, Reviewing lab results, Reviewing old records, For re- examinations, Ventilator management, Examining radiographs If Critical Care minutes are documented, the time involved in the performance of seperately reportable procedures was not counted toward critical care time documented. I directly delivered medical care to this critically ill and/or injured patient. Timely evaluation and treatment was necessary to address the significant organ system(s) dysfunction present in this patient.
[2017-03-22 06:32] LABS: LYMPH # 9.3 K/mm3 (0.7-4.5); LYMPH % 21.3 % (10-50.0)
[2017-03-22 06:36] LABS: HEMOGLOBIN 6.6 g/dL (12.2-16.2)
--- NOTE | 2017-03-22 06:37 | RADIOLOGY REPORT PS360 ---
CHEST-PORTABLE 6:05 AM HISTORY: ET TUBE PLACEMENT ORDERING PHYSICIAN: Jeremy Griffin MD PATIENT AGE: 26 years COMPARISON: Same day at 5:50 AM FINDINGS: Endotracheal tube has been placed. The tip is in good position at the T3 level 6 cm above the jackson. Overlying artifact from cardiopulmonary supporting devices. Nasogastric tube is present with the tip not visible on the film but below the diaphragm. Overall no change in the scattered bilateral alveolar disease with nodularity in both right upper lobe and left lower lobe. IMPRESSION: 1. Good position of endotracheal tube. Nasogastric tube tip is not visible on this study but is below the diaphragm. 3. Diffuse patchy bilateral alveolar disease consistent with diffuse pneumonia. Cannot exclude pulmonary nodules.
--- NOTE | 2017-03-22 06:38 | RADIOLOGY REPORT PS360 ---
CHEST-PORTABLE HISTORY: Shortness of breath dyspnea ORDERING PHYSICIAN: Jeremy Griffin MD PATIENT AGE: 26 years COMPARISON: None available FINDINGS: Borderline cardiomegaly without failure. Bilateral areas of consolidation are noted in the right upper lobe, right lower lobe, and left lower lobe consistent with bilateral pneumonia. These have a somewhat nodular appearance as well. Cannot exclude pulmonary nodules. No evidence of pneumothorax or pleural effusion or CHF. IMPRESSION: Bilateral pneumonia. Pulmonary nodules cannot be excluded and follow-up is recommended
[2017-03-22 07:05] LABS: FREE THYROXIN INDEX 3.5 ug/dl (5.93-13.13)
[2017-03-22 07:09] LABS: STOOL OCCULT BLOOD NEGATIVE (NEG)
[2017-03-22 07:15] LABS: VENOUS ABE -33.4 MMOL/L (-2.4-2.3); VENOUS O2 SAT 19.6 % (75-80); VENOUS TCO2 8.3 MMOL/L (23-27)
--- NOTE | 2017-03-22 07:28 | RADIOLOGY REPORT PS360 ---
CHEST-PORTABLE HISTORY: Respiratory failure, dyspnea, central line placement [id number] ORDERING PHYSICIAN: Jeremy Griffin MD PATIENT AGE: 26 years COMPARISON: Same day FINDINGS: The time was not recorded on the exam endotracheal tube remains in good position with the tip nearly 6 cm above the jackson. Nasogastric tube tip not visible on the film but below the diaphragm. Right IJ central venous line tip is in region of the distal SVC/caval atrial region. No evidence of pneumothorax. There remains diffuse bilateral alveolar opacification with some nodularity as before. There is mild cardiomegaly without failure or effusion. IMPRESSION: New IJ central venous line with the tip in the region of the caval atrial area. Otherwise no change. Endotracheal tube and nasogastric tube remain in good position
[2017-03-22 07:29] LABS: NEUTROPHILS 79 % (42-76)
[2017-03-22 07:31] LABS: STOMATOCYTE 1+
[2017-03-22 07:55] LABS: ABO BLOOD TYPE O; RH BLOOD TYPE POSITIVE
[2017-03-22 07:57] LABS: ANTIHUMAN GLOB CROSSMATCH COMPAT
[2017-03-22 09:18] LABS: ABO BLOOD TYPE O; RH BLOOD TYPE POSITIVE
[2017-03-22 15:45] VITALS: BP 00/00
== END 2017-03-22 15:45 | disposition expired ==
LOC: ER 05:44
PROVIDERS: Emergency Medicine
PROC: 05HM33Z Insertion of Infusion Device into Right Internal Jugular Vein, Percutaneous Approach (ICD-10-PCS; principal; 2017-03-22)
PROC: 0BH17EZ Insertion of Endotracheal Airway into Trachea, Via Natural or Artificial Opening (ICD-10-PCS; principal; 2017-03-22)
DX: I33.0 Acute and subacute infective endocarditis (principal); E87.4 Mixed disorder of acid-base balance; I21.4 Non-ST elevation (NSTEMI) myocardial infarction; D72.829 Elevated white blood cell count, unspecified; D64.9 Anemia, unspecified; J96.01 Acute respiratory failure with hypoxia
CPT/HCPCS: G0328; J0456; J2310; P9016